=== PATIENT | female | born 1990 | race African-American/Black ===

== ENCOUNTER 2016-07-11 04:10 | Emergency (ER) | payer MEDICAID, OTHER ==
[~2016-07-11] VITALS: Ht 157.5 cm; Wt 63.5 kg
[~2016-07-11 04:10] MED LIST: PRENATAL VITAMI1 T10 PO
[2016-07-11 04:19] VITALS: BP 103/72
--- NOTE | 2016-07-11 04:23 | NUR ---
26Y F BIB SELF C/O SORE THROAT X 2 DAYS, PAIN 3/10, WITH DIFFICULTY SWALLOWING, DENIES N/V/D WITH MILD SOB, DENIES CP HX: ASTHMA - RX ALBUTEROL INHALER NKA
--- NOTE | 2016-07-11 04:23 | NUR ---
PT TAKEN TO BED 4
--- NOTE | 2016-07-11 04:33 | NUR ---
Patient being evaluated by physician DR BAER at bedside.
--- NOTE | 2016-07-11 04:45 | NUR ---
Patient discharged with v/s stable. Written and verbal after care instructions given and explained. Patient alert, oriented and verbalized understanding of instructions. Ambulatory with steady gait. All questions addressed prior to discharge. ID band removed. Patient advised to follow up with PMD. Rx of PREDNISONE 50MG, AUGMENTIN 875MG, AND ALBUTEROL INHALER given. Patient educated on indication of medication including possible reaction and side effects. Opportunity to ask questions provided and answered.
[2016-07-11 04:46] VITALS: BP 110/70
== END 2016-07-11 04:45 | disposition home or self-care (01) ==
LOC: MED 04:10
DX: J02.0 Streptococcal pharyngitis (principal)

== ENCOUNTER 2017-01-10 14:13 | Emergency (ER) | payer OTHER ==
[~2017-01-10] VITALS: Ht 157.5 cm; Wt 58.7 kg
[~2017-01-10 14:13] MED LIST changes: +PREN-385 PO; -PRENATAL VITAMI1 T10 PO; +PRON INH
[2017-01-10 14:17] VITALS: BP 117/70
[2017-01-10 14:53] LABS: BILIRUBIN,URINE NEGATIVE (NEGATIVE); BLOOD, URINE 3+ (NEGATIVE); COLOR,URINE YELLOW (YELLOW); LEUKOCYTE ESTERASE ,URINE TRACE (NEGATIVE); NITRITE, URINE NEGATIVE (NEGATIVE); UGLUCOSE NEGATIVE (NEGATIVE)
[2017-01-10 14:57] LABS: APPEARANCE,URINE HAZY (CLEAR)
--- NOTE | 2017-01-10 15:03 | NUR ---
Patient ambulated to bed 3. RN evaluating patient at bedside.
[2017-01-10 15:04] LABS: RBC,URINE TOO NUMEROUS TO COUN /HPF (0-5); WBC,URINE 0-5 (RARE) /HPF (0-5)
--- NOTE | 2017-01-10 15:10 | NUR ---
PATIENT PRESENTS TO ED WITH 26F BIB SELF C/O VAGINAL HEAVY BLEEDING WITHOUT CLOTTS PRIOR TO COMING TO ER TODAY. PT STATES 14 WEEKS AND 3 DAYS . HX: ASTHMA; DENIES N/V/D; SKIN IS PINK/WARM/DRY; AAOX4 WITH EVEN AND STEADY GAIT; LUNGS CLEAR BL; HR EVEN AND REGULAR; PT DENIES ANY FEVER, CP, SOB, OR COUGH AT THIS TIME; PATIENT STATES PAIN OF 0/10 AT THIS TIME; VSS; PATIENT POSITIONED FOR COMFORT; HOB ELEVATED; BEDRAILS UP X2; BED DOWN. ER MD MADE AWARE OF PT STATUS.
--- NOTE | 2017-01-10 15:42 | NUR ---
Dr Cherry evaluating aao pt. at bedside
[2017-01-10 15:57] VITALS: BP 121/71
--- NOTE | 2017-01-10 15:57 | NUR ---
Patient discharged with v/s stable. Written and verbal after care instructions given and explained. Patient verbalized understanding. Ambulatory with steady gait. All questions addressed prior to discharge. Advised to follow up with PMD.
== END 2017-01-10 15:57 | disposition home or self-care (01) ==
LOC: MED 14:13
DX: O20.0 Threatened abortion (principal); J45.909 Unspecified asthma, uncomplicated; Z79.899 Other long term (current) drug therapy; Z3A.14 14 weeks gestation of pregnancy
CPT/HCPCS: 81001; 81025; 99283

== ENCOUNTER 2017-01-21 17:14 | Emergency (ER) | payer OTHER ==
[~2017-01-21] VITALS: Ht 162.6 cm; Wt 61.9 kg
[2017-01-21 17:22] VITALS: BP 122/52
[2017-01-21 18:12] VITALS: BP 124/70
== END 2017-01-21 18:11 | disposition home or self-care (01) ==
LOC: MED 17:14
DX: O20.0 Threatened abortion (principal); Z3A.16 16 weeks gestation of pregnancy; J45.909 Unspecified asthma, uncomplicated; Z79.899 Other long term (current) drug therapy; Z88.0 Allergy status to penicillin
CPT/HCPCS: 99281

== ENCOUNTER 2022-03-20 19:25 | Emergency (ER) | payer OTHER ==
[~2022-03-20] VITALS: Ht 160 cm; Wt 74.8 kg
[2022-03-20 19:31] VITALS: BP 115/66
--- NOTE | 2022-03-20 20:15 | NUR ---
PA ASSESSING PATIENT IN A
[2022-03-20] MEDS ORDERED: BENZ-300 PO (20:47)
[2022-03-20] MEDS ORDERED: NAPR-54 PO (20:47)
--- NOTE | 2022-03-20 21:24 | NUR ---
SEEN AND ASSESSED BY PA. NO NURSING INTERVENTIONS.
--- NOTE | 2022-03-20 21:25 | NUR ---
Patient discharged with v/s stable. Written and verbal after care instructions given and explained. Patient alert, oriented and verbalized understanding of instructions. Ambulatory with steady gait. All questions addressed prior to discharge. ID band removed. Patient advised to follow up with PMD. Rx of BENZOCAINE/MENTHOL, AND NAPROXEN given. Patient educated on indication of medication including possible reaction and side effects. Opportunity to ask questions provided and answered.
== END 2022-03-20 21:24 | disposition home or self-care (01) ==
LOC: MED 19:25
DX: J03.90 Acute tonsillitis, unspecified (principal); Z20.822 Contact with and (suspected) exposure to COVID-19; J02.9 Acute pharyngitis, unspecified; R05.9 Cough, unspecified; R68.83 Chills (without fever); J45.909 Unspecified asthma, uncomplicated; Z88.1 Allergy status to other antibiotic agents; Z79.899 Other long term (current) drug therapy
CPT/HCPCS: 87081; 99283